=== PATIENT | male | born 1960 | race Caucasian/White ===

== ENCOUNTER 2020-08-05 19:05 | Emergency (ER) | payer OTHER ==
[~2020-08-05] VITALS: Ht 177.8 cm; Wt 81.8 kg
[2020-08-05 19:41] VITALS: BP 115/98
[2020-08-05] MEDS ORDERED: LIDOCAINE 2%/EPI 1:100,000 20 ML VIAL. IJ ONE (21:30)
--- NOTE | 2020-08-05 21:53 | PHYS DOC ---
Past History Past Medical History: Other Additional Past Medical Histor: skin cancer (LM AREVALO APRN) Past Surgical History: Knee Replacement (LM AREVALO APRN) Alcohol Use: Occasionally (LM AREVALO APRN) Adult General Chief Complaint Chief Complaint: HAND PROBLEM HPI HPI Patient is a 60-year-old male reports to the emergency department stating his stitches popped out today at approximately 1600. 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 States the stud master/mistress sewed him up and told him to have his sutures removed in 14 days. Patient denies any trauma to the surgical site, states while he was at home he felt his stitches popped out while he was grabbing onto something. Patient states his immediately repaired the open surgical site with Steri-Strips and told him to come to the emergency department. Patient denies pain or discomfort to the surgical site of his hand stating he still feels the numbing effect from the anesthesia that was injected into his hand. Patient denies any loss of movement or swelling to his hand. Patient reports minimal blood loss when stitches "popped out". Patient states his tetanus immunization is up-to-date reporting he had 1 less than 5 years ago. Patient denies allergies to medications, reports a history of type 2 diabetes, states he takes Metformin and Crestor medication. Patient states his primary care provider is Dr. Zarate. (LM AREVALO APRN) Review of Systems Review of Systems 14 body systems of review of systems have been reviewed. See HPI for pertinent positives and negative responses, otherwise all other systems are negative, nonpertinent or noncontributory. (LM AREVALO APRN) Current Medications Current Medications Current Medications Medications (Trade) Dose Ordered Sig/Dian Start Time Stop Time Status Last Admin Dose Admin Lidocaine/ Epinephrine (Xylocaine 2%-Epi 1:100,000) 20 ml 1X ONCE 08/05/20 21:30 08/05/20 21:31 DC (LM AREVALO APRN) Allergies Allergies Allergies Coded Allergies Type Severity Reaction Last Updated Verified No Known Drug Allergies 08/05/20 No (LM AREVALO APRN) Physical Exam Physical Exam Constitutional: Well developed, well nourished, no acute distress, non-toxic appearance. HENT: Normocephalic, atraumatic, bilateral external ears normal, oropharynx moist, no oral exudates, nose normal. Eyes: PERRLA, EOMI, conjunctiva normal, no discharge. Neck: Normal range of motion. Cardiovascular: No cyanosis appreciated, distal cap refill less than 2 seconds. Lungs & Thorax: Patient is in no respiratory distress, no audible adventitious lung sounds appreciated. No stridor appreciated. Skin: Warm, dry, no erythema, no rash. See extremity assessment for surgical site of skin. Extremities: No tenderness, no cyanosis, no clubbing, ROM intact, no edema. Left hand dorsal aspect over web between thumb and pointer finger has elliptical open area consistent with surgical removal of skin, blue-colored suture appears to have unraveled, initial starting suture knot intact, no bleeding or oozing from site, no swelling or infectious process appreciated, no loss of sensation or movement distally, distal cap refill less than 2 seconds of all digits. Neurologic: Alert and oriented X 3, normal motor function, normal sensory function, no focal deficits noted. Psychologic: Affect normal, judgement normal, mood normal. (LM AREVALO APRN) Current Patient Data Vital Signs Vital Signs Date Time Temp Pulse Resp B/P (MAP) Pulse Ox O2 Delivery O2 Flow Rate FiO2 08/05/20 19:41 98.6 74 16 115/98 (104) 93 Room Air (LM AREVALO APRN) EKG EKG [] (LM AREVALO APRN) Radiology/Procedures Radiology/Procedures [] (LM AREVALO APRN) Heart Score C/O Chest Pain: No Risk Factors: Risk Factors: DM, Current or recent (<one month) smoker, HTN, HLP, family history of CAD, obesity. Risk Scores: Risk Factors: DM, Current or recent (<one month) smoker, HTN, HLP, family his tory of CAD, obesity. (LM AREVALO APRN) Course & Med Decision Making Course & Med Decision Making Pertinent Labs and Imaging studies reviewed. (See chart for details) 60-year-old male, vital signs reviewed, reports to the emergency department concerning stitches popped out after having a carcinoma removed at his dermatology office today. Patient reports his surgical procedure was performed at approximately 1330 today, it is now approximately 6 hours later, however patient reports his immediately secured the surgical site closed with Steri-Strips when the incident occurred. Surgical site dehiscence appears to have happened by surgical suture knot unraveling, there was no tears to the surgical repair site. The patient's tetanus immunization was up-to-date, no DTaP Adacel indicated today. Discussed with patient will close surgical site with interrupted sutures, dressed with bacitracin, nonadherent dressing, Coban gauze, placed in Velcro wrist splint to minimize hand movement during healing process, discussed with patient to allow site to be undisturbed for 48 hours, and then daily cleansing and dressing changes with bacitracin ointment, nonadherent dressing, continue to wear wrist splint for 7 days, sutures out in 10 to 12 days. Patient was amenable to this plan. See laceration repair note. Patient gave verbal understanding of discharge home instructions, sutured wound care, follow-up with PCP and 10 to 12 days for reevaluation and removal of sutur es, watch for infectious process related to history of type 2 diabetes, return to ER precautions or concerns, patient had no further questions or concerns, was thankful and felt comfortable taking care of this suture site at home, was discharged home without incident. (LM AREVALO APRN) Dragon Disclaimer Dragon Disclaimer This electronic medical record was generated, in whole or in part, using a voice recognition dictation system. (LM AREVALO APRN) Laceration Repair Lac Repair Indication: Surgical wound dehiscence Procedure: The patient was placed in the appropriate position and anesthesia around the was maintained from previous surgical procedure today at stud master/mistress office, injected less than 1 cc 1% lidocaine without epinephrine to ensure adequate anesthesia. The area was then cleansed with Betadine solution, rinsed with normal saline, explored for foreign bodies, there was no foreign bodies. The laceration was closed with 6 interrupted sutures using 5-0 nylon. The wound area was then dressed with bacitracin, nonadherent dressing, gauze, a Velcro wrist splint was placed by ED nursing staff. Total repaired wound length: 4 cm. Other Items: There was one intact blue color suture most likely Prolene, most likely the initial suture, this was left in place as there was no disruption. Total sutures equals 7, 6 were placed by me today The patient tolerated the procedure well. Complications: Related to the movement of the hand, patient was placed in Velcro wrist splint to minimize movement during skin healing process. (LM AREVALO APRN) Departure Departure: Impression: Primary Impression: Encounter for evaluation of wound Additional Impression: Postoperative wound dehiscence Disposition: HOME / SELF CARE / HOMELESS Condition: GOOD Referrals: ISAIAH ZARATE MD (PCP) Patient Instructions: Suture Removal-Brief Additional Instructions: You were seen today in the emergency department after your sutured hand wound became unraveled and opened back up, I left 1 original Prolene suture in its place, I replaced the rest with 6 interrupted nylon sutures, you have a total of 7 sutures that need removed and 10 to 12 days. Please cleanse with soap and water daily and apply antibiotic ointment and cover with Band-Aid as we discussed, please wear the wrist splint to prevent wound dehiscence, you may stop wearing the wrist splint on next Wednesday, please follow-up with Dr. Zarate to have your sutures removed anytime after day 10 through 12. Please do not leave sutures in longer than 14 days. Please watch for signs and symptoms of infection, your wound is not infected at this time, daily cleansing and wound care should prevent a need for antibiotics. Please return to the emergency department for worsening symptoms or other concerns. EMERGENCY DEPARTMENT GENERAL DISCHARGE INSTRUCTIONS Thank you for coming to [facility] (ED) today and trusting us with you care. We trust that you had a positivie experience in our Emergency Department. If you wish to speak to the department management, you may call the director at [phone]. YOUR FOLLOW UP INSTRUCTIONS ARE FOLLOWS: 1. Do you have a private Doctor? If you do not have a private doctor, please ask for a resource list of physicians or clinics that may be able to assist you with follow up care. 2. The Emergency Physician has interpreted your x-rays. The X-Ray specialist will also review them. If there is a change in the findings, you will be notified in 48 hours when at all possible. 3. A lab test or culture has been done, your results will be reviewed and you will be notified if you need a change in treatment. ADDITIONAL INSTRUCTIONS AND INFORMATION: 1. Your care today has been supervised by a physician who is specially trained in emergency care. Many problems require more than one evaluation for a complete diagnosis and treatment. We recommend that you schedule your follow up appointment as recommended to ensure complete treatment of you illness or injury. If you are unable to obtain follow up care and continue to have a problem, or if your condition worsens, we recommend that you return to the ED. 2. We are not able to safely determine your condition over the phone nor are we able to give sound medical advice over the phone. For these safety reasons, if you call for medical advice we will ask you to come to the ED for further evaluation. 3. If you have any questions regarding these discharge instructions please call the ED at [phone]. SAFETY INFORMATION: In the interest of safety, wellness, and injury prevention; we encourage you to wear your sealbelt, if you smoke; quite smoking, and we encourage family to use a protective helmet for bicycling and other sporting events that present an increased risk for head injury. IF YOUR SYMPTOMS WORSEN OR NEW SYMPTOMS DEVELOP, OR YOU HAVE CONCERNS ABOUT YOUR CONDITION; OR IF YOUR CONDITION WORSENS WHILE YOU ARE WAITING FOR YOUR FOLLOW UP APPOINTMENT; EITHER CONTACT YOUR PRIMARY CARE DOCTOR, THE PHYSICIAN WHOSE NAME AND NUMBER YOU WERE GIVEN, OR RETURN TO THE ED IMMEDIATELY. Attending Signature Attending Signature I have participated in the care of this patient and I have reviewed and agree with all pertinent clinical information above including history, exam, and recommendations. (DEVIN CASH MD) Problem Qualifiers Additional Impression: Postoperative wound dehiscence Encounter type: initial encounter Qualified Codes: T81.31XA - Disruption of external operation (surgical) wound, not elsewhere classified, initial encounter LM AREVALO APRN August 05, 2020 21:53 DEVIN CASH MD August 10, 2020 09:02
[2020-08-05] MEDS ORDERED: BACITRACIN ZINC TOPICAL OINT PACKET. TP ONE (22:00)
[2020-08-05] MEDS ORDERED: LIDOCAINE 1% Multi-Dose 20 ML VIAL. IJ ONE (22:00)
== END 2020-08-05 22:09 | disposition home or self-care (01) ==
LOC: ER 19:05
DX: Z48.01 Encounter for change or removal of surgical wound dressing (principal); T81.31XA Disruption of external operation (surgical) wound, not elsewhere classified, initial encounter; Z85.828 Personal history of other malignant neoplasm of skin
CPT/HCPCS: 12020; 99284